=== PATIENT | male | born 1965 | race Asian ===

== ENCOUNTER 2019-01-25 18:02 | Emergency (ER) | payer OTHER, SELFPAY ==
[2019-01-25] VITALS (15 sets, daily range): BP systolic 142–195; BP diastolic 65–106; PULSE 67–86; RESP 12–23; TEMP 37.1; O2SAT 98–100
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
--- NOTE | 2019-01-25 18:20 | DI.RAD.S_ITS ---
PROCEDURE: XR TIBIA FUBULA RT 2V INDICATIONS: Fall TECHNIQUE: 2 views of the tibia and fibula were acquired. COMPARISON: [facility], CR, XR ANKLE RT MIN 3V, 01/25/2019, 18:14. FINDINGS: Bones: Comminuted in this placed distal fibular and tibial fractures. There is mild angulation at the tibiotalar joint. Soft tissues: No suspicious soft tissue calcifications or masses. IMPRESSION: Comminuted distal fibular and tibial fractures as above. Dictated by: Savanna Gill M.D. on 01/25/2019 at 19:08 Approved by: Savanna Gill M.D. on 01/25/2019 at 19:10
[2019-01-25] MEDS: fentaNYL 100 MCG/2 ML INJ 50 MCG IV ×4 (18:29→21:18)
[2019-01-25 19:12] LABS: Add Manual Diff / Slide Review NO; Basophils Absolute Auto 0 /uL (0-100); Basophils Percent Auto 0.3 % (0-2); Eosinophils Absolute Auto 100 /uL (0-450); Hematocrit 35.5 % (41-53); Hemoglobin 12.1 g/dL (13.5-17.5); Lymphocytes Absolute Auto 400 /uL (1100-4500); Lymphocytes Percent Auto 5.2 % (25-40); Mean Corpuscular HGB Conc 34.1 % (30-36); Mean Corpuscular Volume 96.8 fL (80-100); Monocytes Absolute Auto 500 /uL (0-900); Neutrophils Absolute Auto 7400 /uL (1500-7000); Neutrophils Percent Auto 87.5 % (50-75); Platelet Count 234 X10^3/uL (150-400); Red Blood Cell Count 3.66 X10^6/uL (4.5-5.9); Red Cell Distribution Width 12.8 % (11.6-14.8); White Blood Cell Count 8.5 X10^3/uL (4.5-11.0)
[2019-01-25 19:21] LABS: INR 1.1 (0.9-1.3); Prothrombin Time 12.3 SECONDS (10.1-12.7)
[2019-01-25 19:24] LABS: PTT Partial Thromboplastin Tim 27 SECONDS (26.4-36.2)
[2019-01-25 19:26] LABS: Acetaminophen < 10 ug/mL (10-30); Alanine Aminotransferase 61 IU/L (<50); Albumin 3.6 g/dL (3.5-5.0); Albumin Globulin Ratio 1.6 (1.0-2.8); Alkaline Phosphatase 67 U/L (38-126); Aspartate Aminotransferase 46 IU/L (17-59); Bilirubin Total 0.3 mg/dL (0.2-1.3); Blood Urea Nitrogen 18 mg/dL (9-20); Calcium 8.6 mg/dL (8.4-10.2); Carbon Dioxide 25 mmol/L (22-32); Chloride 109 mmol/L (98-107); Estimated Glomerular Filt Rate > 60.0 mL/min (>60); Ethanol (ETOH) < 10 mg/dL; Globulin 2.3 g/dL (1.7-4.1); Glucose 114 mg/dL (70-100); HEMOLYSIS < 15 (0-50); Lipase 103 U/L (23-300); Potassium 3.9 mmol/L (3.4-5.1); Salicylate < 1.0 mg/dL (<20); Sodium 139 mmol/L (137-145); Total Protein 5.9 g/dL (6.3-8.2)
[2019-01-25 19:30] LABS: Lithium 0.3 mmol/L (0.6-1.2)
[2019-01-25] MEDS: SODIUM CHLORIDE 0.9% 1,000 ML 150 ML IV (20:17)
[2019-01-25] MEDS: MIDAZOLAM 5 MG/ML VIAL (20:54)
[2019-01-25] MEDS: PROPOFOL 200 MG/20 ML VIAL 35 MG IV ×4 (21:22→22:04)
[2019-01-25 21:24] LABS: Bacteria Urine None Seen; RBC Urine None Seen (0-5/HPF); WBC Urine None Seen (0-5/HPF)
[2019-01-25 21:26] LABS: Appearance Urine UA CLEAR; Bilirubin Urine UA NEGATIVE (NEGATIVE); Color Urine UA YELLOW; Glucose Urine UA NEGATIVE (Negative); Ketones Urine UA NEGATIVE (NEGATIVE); Leukocyte Esterase Urine UA NEGATIVE (NEGATIVE); Nitrite Urine UA NEGATIVE (Negative); Occult Blood Urine UA NEGATIVE (Negative); Protein Urine UA NEGATIVE (Negative); Specific Gravity Urine UA <=1.005 (1.000-1.035); Urobilinogen Urine UA 0.2 E.U./dL (0.2); pH Urine UA 5.5 (4.5-8.0)
[2019-01-25 21:30] LABS: Ur Creatinine 20 (Normal); Ur Specific Gravity 1.015 (Normal); Urine pH 5 (Normal)
--- NOTE | 2019-01-25 21:30 | DI.RAD.S_ITS ---
PROCEDURE: XR ANKLE RT MIN 3V INDICATIONS: post reduct RIGHT ANKLE TECHNIQUE: 2 views of the ankle were acquired. COMPARISON: [facility], CR, XR ANKLE RT MIN 3V, 01/25/2019, 18:14. FINDINGS: Bones: Overlying cast material is present. There is unchanged alignment of comminuted distal fibular and tibial fractures with subluxation at the tibiotalar joint space. There is slight increased diastases at the tibiotalar joint space compared to prior exam. Soft tissues: Prominent ankle effusion. Achilles tendon appears normal. IMPRESSION: Persistent appearance of angulated and displaced distal fibular and tibial fractures with increased diastases of the tibiotalar joint space compared to prior exam. Dictated by: Savanna Gill M.D. on 01/25/2019 at 21:48 Approved by: Savanna Gill M.D. on 01/25/2019 at 21:50
[2019-01-25 21:31] LABS: UR Morphine/Opiate cutoff 300 Negative (Negative); Urine Amphetamines Negative (Negative); Urine Barbiturates Negative (Negative); Urine Benzodiazepines Negative (Negative); Urine Cocaine Negative (Negative); Urine MDMA Negative (Negative); Urine Methadone Negative (Negative); Urine Methamphetamines Negative (Negative); Urine Oxycodone Negative (Negative); Urine Phencyclidine Negative (Negative); Urine Tetrahydrocannabinol Positive (Negative); Urine Tricyclic Antidepressant Negative (Negative)
[2019-01-25 21:32] LABS: Culture Indicated Urine Cult Not Indicated
[2019-01-25] MEDS: HYDROMORPHONE 1 MG INJ IV ×2 (21:43→22:39)
== END 2019-01-25 22:53 | disposition short-term general hospital (02) ==
PROVIDERS: Emergency Provider Emergency Medicine
DX: S82.891A Other fracture of right lower leg, initial encounter for closed fracture (principal); R44.3 Hallucinations, unspecified; Y93.39 Activity, other involving climbing, rappelling and jumping off
CPT/HCPCS: 27788; 29515; 36415; 70450; 71045; 71260; 72125; 72170; 73590; 73600; 73610; 74177; 80053; 80178; 80305; 80320; 80329; 81001; 83690; 85025; 85610; 85730; 86850; 86900; 86901; 93005; 94770; 96361; 96374; 96375; 96376; 99152; 99285; 99291; 99292; G0480; J1170; J2250; J2704; J3010; Q9967